=== PATIENT | male | born 1985 | race Caucasian/White ===

== ENCOUNTER 2016-08-16 21:41 | Emergency (ER) | payer OTHER ==
[~2016-08-16] VITALS: Ht 175.3 cm; Wt 101.6 kg
[~2016-08-16 21:41] MED LIST: LEVAQUIN750 MG PO; PERCOCET 5/31 TABLET PO
[2016-08-16 22:51] LABS: BASOPHIL COUNT 0.1 K/uL (0-0.1); EOSINOPHIL (%) 1.6 % (0-5); EOSINOPHIL COUNT 0.3 K/uL (0-0.3); HEMATOCRIT 39.9 % (38.0-50.0); IMMATURE GRANULOCYTE (%) 0.7 % (0.0-0.7); IMMATURE GRANULOCYTE COUNT 1.4 K/uL; LYMPHOCYTE COUNT 2.2 K/uL (1.0-2.8); MCH 28.3 PG (29.0-34.0); MCHC 33.6 G/DL (30.0-36.0); MCV 84.2 FL (86-99); MEAN PLAT.VOLUME 9.2 uM^3 (9.0-12.4); MONOCYTE (%) 6.1 % (3-12); MONOCYTE COUNT 1.2 K/uL (0-0.8); NEUTROPHIL (%) 80.1 % (45-76); PLATELET COUNT 340 K/uL (156-360); RBC DIS.WIDTH-CV 12.7 % (11.8-14.6); RBC DIS.WIDTH-SD 38.2 % (39-53); RED BLOOD COUNT 4.74 M/uL (4.00-5.50); WHITE BLOOD COUNT 19.9 K/uL (4.1-10.2)
[2016-08-16 23:01] LABS: CHLORIDE 104 mEq/L (99-109); POTASSIUM 3.9 mEq/L (3.7-5.4)
[2016-08-16 23:02] LABS: SODIUM 139 mEq/L (136-147)
[2016-08-16 23:04] LABS: GLUCOSE 103 mg/dL (70-99)
[2016-08-16 23:05] LABS: ANION GAP 11 MEQ/L (2-14)
[2016-08-16 23:06] LABS: TOTAL BILIRUBIN 0.2 mg/dL (0.0-1.0)
[2016-08-16 23:07] LABS: ALKALINE PHOSPHATASE 82 IU/L (3-129); GFR ESTIMATE (CALCULATED) > 59 mL/min/
[2016-08-16 23:09] LABS: UREA NITROGEN (BUN) 10 mg/dL (9-23)
[2016-08-16 23:17] LABS: INTERNAL CONTROL VALID? YES; MONOSPOT (MONONUCLEOSIS SEROL) NEGATIVE
[2016-08-17] MEDS ORDERED: NAPROXEN500 M1 PO (00:41)
[2016-08-17] MEDS ORDERED: MUCINEX D ER T1 EAC1 PO (01:03)
[2016-08-17] MEDS ORDERED: ZITHROMAX Z-PA250 MG PO (01:03)
[2016-08-17 01:07] VITALS: BP 135/84
== END 2016-08-17 01:08 | disposition home or self-care (01) ==
LOC: EME 21:41
PROVIDERS: Physician Assistant
DX: J32.9 Chronic sinusitis, unspecified (principal); R59.0 Localized enlarged lymph nodes; I10 Essential (primary) hypertension; G47.30 Sleep apnea, unspecified; F17.200 Nicotine dependence, unspecified, uncomplicated
CPT/HCPCS: 70491; 80053; 85025; 86308; 87651 90; 99281; 99284; J7030